=== PATIENT | female | born 2000 | race Caucasian/White ===

== ENCOUNTER 2021-02-06 17:43 | Emergency (ER) | payer MEDICAID, SELFPAY ==
[2021-02-06 17:52] VITALS: BP 119/83; PULSE 99; RESP 18; TEMP 36.7; O2SAT 98; BMI 37.3
[2021-02-06 19:28] VITALS: BP 128/82; PULSE 88; RESP 18; O2SAT 98
--- NOTE | 2021-02-06 19:40 | W.ED.FEMALGU ---
HPI - Female Genitourinary General: Chief complaint: Vaginal Bleeding Stated complaint: 5 wks , Spotting/Cramping Time Seen by Provider: 02/06/21 19:28 History of Present Illness: HPI Narrative: The patient is a 20-year-old female G3, P1 at approximately 5 weeks gestational age who comes to the ER complaining of 3 hours of lower uterine contractions type pain. No blood clots or tissue passed but she is having mild spotting. She says last year she had a miscarriage which presented like this. She wants to come in and get checked out. Offers no other medical problems. Denies flank pain, urinary symptoms, nausea, vomiting, diarrhea, abdominal pain Severity: mild Quality of pain: cramping Consistency: constant Vaginal discharge: none Vaginal bleeding: scant Exacerbating factors: none Associated symptoms: Reports no associated symptoms; Deny abdominal pain or headache(s) Possible : at home test positive Date of Last Menstrual Period: 12/31/20 Review of Systems General: Reports: 10 or more systems reviewed and unremarkable except in HPI and below Const: Denies: fatigue Eyes: Denies: change in vision, blurry vision or eye redness ENMT: Denies: throat pain, swelling of lips/tongue, ear or mastoid pain or nasal congestion Card: Denies: chest pain, palpitations, irregular heart rhythm, edema, dyspnea on exertion or orthopnea Resp: Denies: dyspnea, productive cough or non-productive cough GI: Denies: abdominal pain, diarrhea or GI cramping : Reports: other (Vaginal spotting blood); Denies: flank pain, difficulty voiding, urinary frequency or urinary urgency Musc: Denies: neck pain, back pain, extremity pain, joint pain, joint redness, limited range of motion or muscle weakness Skin/Breast: Denies: rash, pruritus, erythema, skin pain or skin tenderness Neuro: Denies: headache(s), numbness in extremities, weakness in extremities, sensory changes, difficulty walking, dizziness, confusion or Slurred speech present Psych: Denies: anxiety or depression Endo: Denies: polyuria All/Imm: Denies: urticaria, throat swelling or tongue swelling [facility] Female Reproductive History: Date of last menstrual period: 12/31/20 Physical Exam Const: COMMON NORMALS: no acute distress, average body habitus, patient oriented x3, no limitations, healthy appearing, alert and well nourished GENERAL APPEARANCE: cooperative, comfortable, well kempt and well developed ORIENTATION/CONSCIOUSNESS: Yes awake, Yes oriented to person, Yes oriented to place and Yes oriented to time HENMT: COMMON NORMALS: normocephalic, external ears normal and Normal external nose present HEAD & SCALP: normal to inspection and normocephalic NOSE: Normal external nose present EXTERNAL EAR: Yes external ears normal MOUTH: Normal oral and palatal mucosa present THROAT: posterior oropharynx normal Eye: COMMON NORMALS: Equal, round and reactive pupils present and EOMs intact bilaterally GENERAL EYE: appearance normal, both eyes and all related structures PUPIL: Yes Equal, round and reactive pupils present Neck/C-Spine: COMMON NORMALS: full ROM, no lymphadenopathy, no meningeal signs and no JVD GENERAL: Yes normal visual inspection Lymph: LYMPHATIC: no lymphadenopathy noted Chest: COMMONS NORMALS: normal inspection of the chest and normal palpation of entire chest wall Resp: COMMON NORMALS: normal respiratory effort, No retractions, No use of accessory muscles, clear to auscultation bilaterally and percussion normal EFFORT & INSPECTION: Yes able to speak in complete sentences AUSCULTATION: clear to auscultation bilaterally PERCUSSION: percussion normal Cardio: COMMON NORMALS: no JVD, regular rate, regular rhythm, S1 normal heart sound present, S2 normal heart sound present and Peripheral pulses 2+ throughout RATE: regular rate RHYTHM: regular rhythm HEART SOUNDS: S1 normal heart sound present and S2 normal heart sound present PERIPHERAL PULSES: Peripheral pulses 2+ throughout GI: COMMON NORMALS: Normal to inspection, nondistended, normoactive bowel sounds present, Soft to palpation, non-tender and no masses INSPECTION: Yes normal to inspection PALPATION: Yes Soft to palpation : COMMON NORMALS: Yes no CVA tenderness BLADDER/KIDNEY EXAM: Yes no CVA tenderness Back/Pelvis: COMMON NORMALS: no CVA tenderness, thoracic and lumbar spine normal to inspection, no thoracic nor lumbar tenderness and thoraco-lumbar ROM normal Extremity: COMMON NORMALS: normal to inspection, full ROM, capillary refill normal, no joint enlargement and no pedal edema GENERAL: Yes normal exam except as noted Neuro: COMMON NORMALS: patient oriented x3, CN's II-XII intact bilaterally, moves all extremities, no focal motor deficits, no sensory deficits noted and gait normal SENSORIUM/ORIENTATION: Yes alert, Yes oriented to person, Yes oriented to place and Yes oriented to time MENINGEAL SIGNS: Yes no meningeal signs Psych: COMMON NORMALS: mental status grossly normal, Normal thought process present, cooperative, normal affect and speech normal APPEARANCE: Yes well kempt ATTITUDE: Yes calm SPEECH: Yes normal speech THOUGHT PROCESS: Normal thought process present Skin: COMMON NORMALS: no rashes or lesions noted GENERAL SKIN EXAM: no rashes or lesions noted Course Vital Signs: Vital signs: Vital Signs Temperature 98.1 F 02/06/21 17:52 Pulse Rate 86 02/06/21 21:23 Respiratory Rate 18 02/06/21 21:23 Blood Pressure 134/76 02/06/21 21:23 Pulse Oximetry 98 02/06/21 21:23 MDM - Female MDM Narrative: Medical decision making narrative: Patient came in complaining of lower abdominal cramping like a period and vaginal spotting. She is 5 weeks . hCG is 20 and ultrasound shows no intrauterine . Likely she has had a miscarriage however recommended she follow-up with OB in 2 days and get a repeat beta-hCG and ultrasound at that time. Return to the ER with any worsening symptoms at any time. Also incidentally her lipase was found to be 163. She is not having any symptoms of acute pancreatitis her pain is much lower than her pancreas. This is likely just an incidental finding however I recommended she drink lots of fluids and follow-up with her primary care physician next week to have the lab repeated. Lab Data: Labs: Lab Results 02/06/21 02/06/21 02/06/21 Range/Units 07:20 07:20 19:15 WBC 6.4 (4.0-10.0) 10^3/ uL RBC 4.95 (4.1-5.3) 10^6/u L Hgb 14.7 (11.5-15.3) g/dL Hct 43.6 (37.0-47.0) % MCV 88.1 (81-99) fL MCH 29.7 (28.0-34.0) pg MCHC 33.7 (30.0-36.0) g/dL RDW 12.4 (12.1-15.1) % Plt Count 285 (130-400) 10^3/c mm MPV 10.1 (7.4-10.4) fL Neut % (Auto) 56.7 % Lymph % (Auto) 31.2 % [place] % (Auto) 9.6 % Eos % (Auto) 1.9 % Baso % (Auto) 0.3 % Neut # (Auto) 3.65 (1.8-7.7) 10^3/u L Lymph # (Auto) 2.0 (0.8-4.8) 10^3/u L [place] # (Auto) 0.6 (0.2-0.9) 10^3/u L Eos # (Auto) 0.1 (0.0-0.8) 10^3/u L Baso # (Auto) 0.0 (0.0-0.1) 10^3/u L Nucleated RBC % (a uto) 0 % Nucleated RBCs # 0.0 /100WBC Sodium 136 (136-145) mmol/L Potassium 3.9 (3.5-5.1) mmol/L Chloride 100 (98-107) mmol/L Carbon Dioxide 23 (22-29) mmol/L Anion Gap 16.9 (5-19) BUN 5 L (6-20) mg/dL Creatinine 0.7 (0.5-0.9) mg/dL GFR Calculation 105.6 (90-130) mL/min Glucose 74 (65-115) mg/dL Calculated Osmolal ity 278 L (285-295) mOsm/k g Calcium 9.1 (8.5-10.5) mg/dL Total Bilirubin 0.4 (0.15-1.2) mg/dL AST 20 (0-32) U/L ALT 27 (0-33) U/L Alkaline Phosphata se 54 (35-105) IU/L Total Protein 7.1 (6.6-8.7) g/dL Albumin 5.0 (3.5-5.2) g/dL Globulin 2.1 (1.3-4.6) g/dL Lipase 163 H (13-60) U/L Ser , [place] i-Qnt 20.87 mIU/mL Urine Color Yellow (Yellow) Urine Appearance Clear (CLEAR) Urine pH 5 (5-7) Ur Specific Gravit y 1.020 (1.005-1.030) Urine Protein Neg (Negative) Urine Glucose (UA) Norm (Normal) Urine Ketones Negative (Negative) Urine Blood Neg (Negative) Urine Nitrate Positive H (Negative) Urine Bilirubin Neg (Negative) Urine Urobilinogen Norm (Negative) mg/dL Ur Leukocyte Donna ase Negative (Negative) Urine RBC 0-4 H (0-2) /hpf Urine WBC 5-10 H (0-5) /hpf Ur Squamous Epith Cells 10-15 H (0-5) /hpf Amorphous Sediment Not Reportable Urine Bacteria 1+ H (NONE) /hpf Blood Type Rho(D) Type Antibody Screen 02/06/21 Range/Units 19:40 WBC (4.0-10.0) 10^3/ uL RBC (4.1-5.3) 10^6/u L Hgb (11.5-15.3) g/dL Hct (37.0-47.0) % MCV (81-99) fL MCH (28.0-34.0) pg MCHC (30.0-36.0) g/dL RDW (12.1-15.1) % Plt Count (130-400) 10^3/c mm MPV (7.4-10.4) fL Neut % (Auto) % Lymph % (Auto) % [place] % (Auto) % Eos % (Auto) % Baso % (Auto) % Neut # (Auto) (1.8-7.7) 10^3/u L Lymph # (Auto) (0.8-4.8) 10^3/u L [place] # (Auto) (0.2-0.9) 10^3/u L Eos # (Auto) (0.0-0.8) 10^3/u L Baso # (Auto) (0.0-0.1) 10^3/u L Nucleated RBC % (a uto) % Nucleated RBCs # /100WBC Sodium (136-145) mmol/L Potassium (3.5-5.1) mmol/L Chloride (98-107) mmol/L Carbon Dioxide (22-29) mmol/L Anion Gap (5-19) BUN (6-20) mg/dL Creatinine (0.5-0.9) mg/dL GFR Calculation (90-130) mL/min Glucose (65-115) mg/dL Calculated Osmolal ity (285-295) mOsm/k g Calcium (8.5-10.5) mg/dL Total Bilirubin (0.15-1.2) mg/dL AST (0-32) U/L ALT (0-33) U/L Alkaline Phosphata se (35-105) IU/L Total Protein (6.6-8.7) g/dL Albumin (3.5-5.2) g/dL Globulin (1.3-4.6) g/dL Lipase (13-60) U/L Ser , [place] i-Qnt mIU/mL Urine Color (Yellow) Urine Appearance (CLEAR) Urine pH (5-7) Ur Specific Gravit y (1.005-1.030) Urine Protein (Negative) Urine Glucose (UA) (Normal) Urine Ketones (Negative) Urine Blood (Negative) Urine Nitrate (Negative) Urine Bilirubin (Negative) Urine Urobilinogen (Negative) mg/dL Ur Leukocyte Donna ase (Negative) Urine RBC (0-2) /hpf Urine WBC (0-5) /hpf Ur Squamous Epith Cells (0-5) /hpf Amorphous Sediment Urine Bacteria (NONE) /hpf Blood Type O Positive Rho(D) Type Positive / 4+ Antibody Screen Negative Discharge Plan Discharge Patient Disposition: Home Clinical Impression: Threatened , Elevated lipase Condition: Stable Discharge Orders: Discharge ED (Routine); Ordered 02/06/21 Ordered By: Elian Bee Discharge Diet: Advance as tolerated Discharge Activity: Resume usual activity Patient Instructions: Threatened Miscarriage (ED), Pancreatitis (ED), Opioid Safety Activity Restrictions/Additional Instructions: You are 5 weeks and your quantitative hCG is 20. Ultrasound does not see a in your uterus also. There is a high likelihood you have had a miscarriage. Please follow-up with your manager legal in a couple days to have your hCG redrawn. If it is not going up it will be formally called a miscarriage. Also of note incidentally found your lipase is elevated to 163. This may be of no consequence as you are not having significant pain where your pancreas is. Please drink lots of fluids and have your lipase level rechecked by your primary care physician next week. Return to the ER if you develop worsening belly pain or start having nausea and vomiting. Coding Level of Care Code ED Rubber Thread Spooler for Chg Fwd Exam Comprehensive
[2021-02-06 19:51] LABS: Basophils % 0.3 %; Eosinophils # 0.1 10^3/uL (0.0-0.8); Eosinophils % 1.9 %; Hematocrit 43.6 % (37.0-47.0); Hemoglobin 14.7 g/dL (11.5-15.3); Lymphocytes % 31.2 %; Mean Corpuscular HGB Conc 33.7 g/dL (30.0-36.0); Mean Corpuscular Hemoglobin 29.7 pg (28.0-34.0); Mean Corpuscular Volume 88.1 fL (81-99); Mean Platelet Volume 10.1 fL (7.4-10.4); Monocytes # 0.6 10^3/uL (0.2-0.9); Monocytes % 9.6 %; Neutrophils # 3.65 10^3/uL (1.8-7.7); Neutrophils % 56.7 %; Nucleated Red Blood Cells % 0 %; Platelet Count 285 10^3/cmm (130-400); Red Blood Count 4.95 10^6/uL (4.1-5.3); Red Cell Distribution Width 12.4 % (12.1-15.1); White Blood Count 6.4 10^3/uL (4.0-10.0)
[2021-02-06 19:58] LABS: Bilirubin Urine Neg (Negative); Blood Urine Neg (Negative); Glucose Urine UA Norm (Normal); Ketones Urine Negative (Negative); Leukocyte Esterase Urine Negative (Negative); Protein Urine Neg (Negative); Urine Appearance Clear (CLEAR); Urine Color Yellow (Yellow); Urobilinogen Urine Norm (Negative); pH Urine 5 (5-7)
[2021-02-06 20:08] LABS: Nitrate Urine Positive (Negative)
[2021-02-06 20:09] LABS: Add Urine Culture? No; Add Urine Microscopic? YES; Bacteria Urine 1+ /hpf; RBC Urine 0-4 /hpf (0-2)
[2021-02-06 20:12] LABS: HCG Quantitative 20.87 mIU/mL
[2021-02-06 20:23] LABS: Alanine Aminotransferase 27 U/L (0-33); Alkaline Phosphatase 54 IU/L (35-105); Anion Gap 16.9 (5-19); Aspartate Amino Transferase 20 U/L (0-32); Blood Urea Nitrogen 5 mg/dL (6-20); Calcium 9.1 mg/dL (8.5-10.5); Carbon Dioxide 23 mmol/L (22-29); Chloride 100 mmol/L (98-107); Globulin 2.1 g/dL (1.3-4.6); Glomerular Filtration Rate 105.6 mL/min (90-130); Glucose 74 mg/dL (65-115); Lipase 163 U/L (13-60); Osmolality Calculated 278 mOsm/kg (285-295); Potassium 3.9 mmol/L (3.5-5.1); Sodium 136 mmol/L (136-145); Total Bilirubin 0.4 mg/dL (0.15-1.2); Total Protein 7.1 g/dL (6.6-8.7)
--- NOTE | 2021-02-06 21:03 | USR_ITS ---
PROCEDURE INFORMATION: Exam: US , Transvaginal and US Duplex Artery or Vein, Ovaries, Limited Exam date and time: 02/06/2021 9:03 PM Age: 20 years old Clinical indication: complicated by abdominal or pelvic pain; Left lower quadrant; First trimester; Gestational age or lmp: 5 w 5 day by lmp; ; Additional info: Threatened . Beta hCG 20 TECHNIQUE: Imaging protocol: Real-time transvaginal obstetrical ultrasound of the maternal pelvis and a first trimester with image documentation. Transvaginal imaging was used for better evaluation of the fetus, adnexa, and/or cervix. Real-time duplex ultrasound scan of the arterial or venous flow of the ovaries with B-mode, color Doppler flow and spectral waveform analysis, Limited Duplex. COMPARISON: 1. CT abdomen pelvis w con* [id number] 01/18/2019 2:42 PM 2. US gall bladder [id number] 11/21/2016 7:11 AM FINDINGS: GESTATION: Gestation: No intrauterine gestational sac. MATERNAL: Uterus: The endometrial stripe measures 16 mm in thickness. Right adnexa: Unremarkable right ovary. Normal right ovarian blood flow and waveform. Left adnexa: Unremarkable left ovary. Normal left ovarian blood flow and waveform. US/US OB transvaginal [id number] IMPRESSION: 1. No intrauterine gestational sac. Findings can be secondary to early intrauterine or failed . Ectopic cannot be excluded. 2. No ovarian torsion.
[2021-02-06 21:23] VITALS: BP 134/76; PULSE 86; RESP 18; O2SAT 98
[2021-02-06 22:42] VITALS: BP 132/70; PULSE 74; RESP 18; O2SAT 99
== END 2021-02-06 22:40 | disposition home or self-care (01) ==
PROVIDERS: Emergency Medicine; Emergency Provider Family Medicine
DX: O20.0 Threatened abortion (principal); Z3A.01 Less than 8 weeks gestation of pregnancy; O26.891 Other specified pregnancy related conditions, first trimester; R79.89 Other specified abnormal findings of blood chemistry
CPT/HCPCS: 76817; 80053; 81001; 83690; 84702; 85025; 86850; 86900; 99283

== ENCOUNTER 2023-08-05 13:21 | Outpatient (CLI) | payer MEDICAID, SELFPAY ==
[2023-08-05] MEDS: iohexol 350 mg/mL 500 mL Btl (per mL) IV (13:41)
--- NOTE | 2023-08-05 14:00 | CT_ITS ---
WS: [id number] CT chest w con* [id number] HISTORY: R91.1 - Solitary pulmonary nodule TECHNIQUE: Axial imaging performed through the thorax. Coronal and sagittal reformats are submitted. All CT scans at [facility] use at least one of these dose optimization techniques: automated exposure control; mA and/or kV adjustment per patient size (includes targeted exams where dose is mat ched to clinical indication); or iterative reconstruction. CONTRAST: Omnipaque 350; 100 mL IV. DLP: 476.54 mGy.cm COMPARISON: 05/11/2018 and 01/18/2019 Lungs and central airway: Poor inspiration. Slightly lobulated subpleural nodule measuring 9 mm in ma ximal diameter at the LEFT lung base abutting the diaphragm. No additional nodule or mass. This nodul e was not present in 2019. No pneumonia. Pleura: No effusions. Heart and pericardium: Normal size heart with no pericardial effusion. Mediastinum and grey: Enlarged RIGHT paratracheal lymph node measures 1.4 x 1.7 cm. There are smaller but mildly prominent perihilar lymph nodes. No axillary nodes. Vessels: Normal size aortic and pulmonary artery. No coronary artery calcifications. Chest wall and lower neck: Mild thyromegaly. Upper abdomen: Prior cholecystectomy. Small hiatal hernia. Osseous structures: No destructive process. IMPRESSION: 1. Lobulated subpleural nodule at the LEFT lung base abuts the diaphragm measuring 9 mm. Not present in 2019. Recommend chest CT follow-up in 3 months. 2. Enlarged RIGHT paratracheal lymph nodes. This may be a single lymph node or several lymph nodes to gether. Lymph nodes can also be reevaluated in a 3-month chest CT follow-up with IV contrast. 3. Prior cholecystectomy.
== END 2023-08-05 13:22 | disposition home or self-care (01) ==
LOC: RAD 13:21
PROVIDERS: PCP Nurse Practitioner; Visit Provider Nurse Practitioner
DX: R91.1 Solitary pulmonary nodule (principal); R06.00 Dyspnea, unspecified
CPT/HCPCS: 71260; Q9967

== ENCOUNTER 2023-11-13 13:12 | Outpatient (CLI) | payer MEDICAID, SELFPAY ==
--- NOTE | 2023-11-13 13:27 | CT_ITS ---
WS: [id number] Exam: CT neck w con* [id number] Date/Time of Exam: 11/13/2023 1:42 PM Reason For Exam: LOCALIZED ENLARGED LYMPH NODES DLP: 246.[address] scans at [facility] use at least one of these dose optimization techniques: automated e xposure control; mA and/or kV adjustment per patient size (includes targeted exams where dose is matc hed to clinical indication); or iterative reconstruction. No significant cervical lymphadenopathy is noted. There are benign-appearing fatty replaced lymph nod es along the anterior aspects of both submandibular glands. There is goitrous enlargement of the thyr oid gland. The airway is patent. There are small nodes along the anterior bilateral carotid sheaths h owever all measure less than 1 cm in greatest short axis dimension. The parotid glands and submandibu lar glands appear normal. No mass is noted in the region of the tongue base. Vascular structures in t he neck are patent. No mediastinal mass or significant adenopathy. No destructive bone changes. IMPRESSION: 1. No sign of neck mass or significant cervical lymphadenopathy. 2. Goitrous enlargement of the thyroid gland. This is generalized.
[2023-11-13] MEDS: iohexol 350 mg/mL 500 mL Btl (per mL) IV (13:29)
--- NOTE | 2023-11-13 13:30 | CT_ITS ---
WS: [id number] Exam: CT chest wo kranthi [id number] Date/Time of Exam: 11/13/2023 1:30 PM Reason For Exam: Follow Up DLP: 521.[address] scans at [facility] use at least one of these dose optimization techniques: automated e xposure control; mA and/or kV adjustment per patient size (includes targeted exams where dose is matc hed to clinical indication); or iterative reconstruction. Comparison 08/05/2023. There is a stable appearing 9 mm subpleural nodule that abuts the LEFT diaphragm. No new nodules or m asses are identified in either lung. The lungs are clear and fully expanded. No pericardial or pleura l effusion identified. A small cluster of subcentimeter RIGHT anterior paratracheal lymph nodes are n oted and are unchanged since the previous study. No pathologically enlarged lymph nodes are identifie d. Enlarged bilateral thyroid lobes. The thoracic aorta is normal in caliber. The chest wall is intac t. No destructive bone lesions are seen. CT sections of the upper abdomen demonstrate no significant abnormal finding. IMPRESSION: 1. Stable appearing 9 mm subpleural nodule abuts the LEFT diaphragm. No new pulmonary nodules or mass es identified. 2. Small cluster of subcentimeter lymph nodes along the RIGHT paratracheal region stable since prior study. No suspicious enlarged nodes in the chest.
== END 2023-11-13 13:13 | disposition home or self-care (01) ==
LOC: RAD 13:14
PROVIDERS: PCP Nurse Practitioner; Visit Provider Internal Medicine Pulmonary Disease
DX: R91.1 Solitary pulmonary nodule (principal)
CPT/HCPCS: 70491; 71250; Q9967

== ENCOUNTER 2023-11-21 11:07 | Emergency (ER) | payer MEDICAID, SELFPAY ==
--- NOTE | 2023-11-21 11:11 | W.ED.LOWEXIN ---
HPI - Extremity Injury (Lower) General: Chief Complaint: Extremity Injury, Lower Stated Complaint: LEFT ANKLE PAIN S/P FALL Time Seen by Provider: 11/21/23 11:11 Source: patient Mode of arrival: EMS Limitations: no limitations History of Present Illness: Patient is a 23-year-old female presents to ED today via EMS for evaluation of left foot injury that she sustained just prior to arrival. 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 She complains of pain and swelling to the lateral aspect of the left foot. She is not having ankle pain. No other injuries or complaints at this time. MD complaint: foot injury Onset (ago): hour(s) Injury: Left: foot Type of Injury: inversion Place: work Severity: moderate Relieving factors: immobilization Exacerbating factors: weight bearing, movement and palpation Context: other (twisted) Associated symptoms: Reports inability to bear weight Other symptoms: none Review of Systems Musc: Reports: extremity pain (L foot) and extremity swelling (L foot) Neuro: Reports: difficulty walking (secondary to L foot pain); Denies: numbness in extremities or sensory changes PFS ED PFSH: Social History Smoking and tobacco/nicotine status: current every day tobacco/nicotine user e-cigarettes E-Cigarette Details: vaporizer device E-cig/vape details: 5 mg, 1000 puffs daily, former 5 cigs/day X 1.5 year Alcohol intake: never Substance/Drug Use: never Physical Exam Const: COMMON NORMALS: no acute distress, patient oriented x3, no limitations, healthy appearing, alert and well nourished Extremity: COMMON NORMALS: capillary refill normal, no joint enlargement, no clubbing, cyanosis or edema and no pedal edema GENERAL: Yes normal exam except as noted LEFT LOWER EXTREMITY: Yes foot & digits Left foot and digits: Yes inspection (swelling and tenderness near base of 5th metatarsal), Yes palpation (TTP base of 5th metatarsal), Yes ROM (limited secondary to pain) and Yes neurovascular exam (normal) Neuro: COMMON NORMALS: patient oriented x3, moves all extremities, no focal motor deficits and no sensory deficits noted SENSORIUM/ORIENTATION: Yes alert Skin: TRAUMA: no lacerations or abrasions Course Vital Signs: Vital signs: Vital Signs Temperature 98.2 F 11/21/23 11:12 Pulse Rate 117 H 11/21/23 11:27 Respiratory Rate 18 11/21/23 11:27 Blood Pressure 127/101 11/21/23 11:27 Pulse Oximetry 97 11/21/23 11:27 Oxygen Delivery Me thod Room Air 11/21/23 11:27 MDM - Extremity Injury (Lower) Medical Decision Making Patient with a fracture to the base of her left fifth metatarsal. She will be placed in a splint and given crutches with instructions for no weightbearing until she follows up with orthopedics/podiatry. Case management referral placed for this. Lab Data Radiology Impressions Foot X-Ray 11/21/23 11:17 IMPRESSION: Acute fracture of the 5th metatarsal All radiology interpretation(s) finalized by discharge Discharge Plan Discharge Patient Disposition: Home Clinical Impression: Closed fracture of fifth metatarsal bone Qualifiers: Encounter type: initial encounter Fracture alignment: displaced Laterality: left Qualified Code(s): S92.352A - Displaced fracture of fifth metatarsal bone, left foot, initial encounter for closed fracture Condition: Stable Prescriptions: New hydrocodone-acetaminophen 5-325 mg tablet 1 tab PO Q6H PRN (Reason: pain) Qty: 14 0RF Discharge Orders: Discharge ED (Routine); Ordered 11/21/23 Ordered By: Corrie Ramsay Referrals: Vijaya Gamez FNP [Primary Care Provider] - Patient Instructions: Fractures - Metatarsal, Opioid Safety, Pain Management Activity Restrictions/Additional Instructions: As we discussed you need to be nonweightbearing until told otherwise by orthopedics/podiatry. You should hear from them next week in regards to your follow-up appointment. Stand Alone Forms: Work/School Release Coding Level of Care Code ED Dispatcher Maintenance Service for Gabe Valdivia
[2023-11-21 11:12] VITALS: BP 127/92; PULSE 94; RESP 18; TEMP 36.8; O2SAT 98; BMI 36.6
--- NOTE | 2023-11-21 11:17 | XRR_ITS ---
PROCEDURE INFORMATION: Exam: XR Left Foot Exam date and time: 11/21/2023 11:25 AM Age: 23 years old Clinical indication: Injury or trauma; Fall; Blunt trauma; Ankle; Left TECHNIQUE: Imaging protocol: Radiologic exam of the left foot. Views: 3 or more views. COMPARISON: No relevant prior studies available. FINDINGS: Bones/joints: There is an acute transverse nondisplaced fracture involving the base of the 5th metatarsal. No other bony abnormality noted. Soft tissues: Normal. XR/XR foot LT min 3V* [id number] IMPRESSION: Acute fracture of the 5th metatarsal
[2023-11-21 11:27] VITALS: BP 127/101; PULSE 117; RESP 18; O2SAT 97
[2023-11-21 12:17] VITALS: BP 130/96; PULSE 95; RESP 16; TEMP 36.8; O2SAT 99
--- NOTE | 2023-11-24 15:22 | PC.SOCIAL ---
Ortho Referral Referral to clinic at this time. Clinic to contact patient with appt date/time.
== END 2023-11-21 12:19 | disposition home or self-care (01) ==
PROVIDERS: Emergency Provider Physician Assistant; PCP Nurse Practitioner
DX: S92.352A Displaced fracture of fifth metatarsal bone, left foot, initial encounter for closed fracture (principal); F17.290 Nicotine dependence, other tobacco product, uncomplicated; W18.49XA Other slipping, tripping and stumbling without falling, initial encounter; Y99.0 Civilian activity done for income or pay
CPT/HCPCS: 73630; 99283; E0114

== ENCOUNTER → 2024-03-29 10:49 | Outpatient (BNVA) | payer MEDICAID, SELFPAY | PROVIDERS: PCP Nurse Practitioner; Visit Provider Nurse Practitioner Family | DX: Z32.00 Encounter for pregnancy test, result unknown (principal); M79.672 Pain in left foot | CPT/HCPCS: 73630; 81025 ==

== ENCOUNTER 2024-08-13 08:39 | Emergency (ER) | payer MEDICAID, SELFPAY ==
[2024-08-13 08:51] VITALS: BP 136/82; PULSE 88; RESP 13; TEMP 36.5; O2SAT 100; BMI 36.0
[2024-08-13 09:10] LABS: Basophils % 0.9 %; Eosinophils # 0.1 10^3/uL (0.0-0.8); Hematocrit 37.8 % (36-47); Lymphocytes # 1.1 10^3/uL (0.8-4.8); Lymphocytes % 25.2 %; Mean Corpuscular HGB Conc 33.9 g/dL (30-55); Mean Corpuscular Hemoglobin 29.2 pg (27-33); Mean Corpuscular Volume 86.1 fl (85-98); Mean Platelet Volume 10.7 fL (7.4-10.4); Monocytes # 0.3 10^3/uL (0.2-0.9); Monocytes % 7.7 %; Neutrophils # 2.82 10^3/uL (1.8-7.7); Neutrophils % 64.2 %; Nucleated Red Blood Cells % 0 %; Platelet Count 220 10^3/cmm (157-399); Red Blood Count 4.39 10^6/uL (3.85-5.65)
--- NOTE | 2024-08-13 09:23 | ED_ITS ---
HPI - Abdominal Pain 2 General: Chief Complaint: Abdominal Pain Stated Complaint: severe pain on lft side Time Seen by Provider: 08/13/24 08:44 History of Present Illness: 24-year-old female presents emergency ro om complaining of suprapubic abdominal pain. She denies any fever sweats or chills earlier she had a little pain radiate to the towards the left leg that has resolved she denies any hematuria. She does not believe she is no vomiting or diarrhea Associated Symptoms: Denies chills, dysuria and fever(s) Related Data Date of Last Menstrual Period: 07/14/24 Previous Rx's Medication Instructions Recorded ciprofloxacin HCl 500 mg tablet 500 mg PO BID #14 tabs 08/13/24 (Cipro) phenazopyridine 200 mg tablet 200 mg PO Q8H PRN pain 6 doses #6 08/13/24 (Pyridium) tabs Allergies Allergy/AdvReac Type Severity Reaction Status Date / Time Penicillins Allergy ALGY-Anaphy Verified 08/13/24 08:55 laxis Review of Systems 2 Const: Denies: fever(s) or chills Card: Denies: chest pain Resp: Denies: dyspnea GI: Denies: abdominal pain : Reports: flank pain (Transient); Denies: dysuria, urinary frequency or urinary urgency Musc: Denies: neck pain or back pain Skin/Breast: Denies: rash PFSH ED 2 PFSH: Social History Smoking and tobacco/nicotine status: current every day tobacco/nicotine user e- cigarettes E-Cigarette Details: vaporizer device E-cig/vape details: 5 mg, 1000 puffs daily, former 5 cigs/day X 1.5 year Alcohol intake: never Substance/Drug Use: never Female Reproductive History: Date of last menstrual period: 07/14/24 Physical Exam 2 Const: GENERAL APPEARANCE: cooperative ORIENTATION/CONSCIOUSNESS: Yes awake, Yes oriented to person, Yes oriented to place and Yes oriented to time HENMT: COMMON NORMALS: normocephalic, atraumatic and hearing grossly normal bilaterally HEAD & SCALP: normocephalic and atraumatic Resp: COMMON NORMALS: normal respiratory effort, No retractions, No use of accessory muscles and clear to auscultation bilaterally AUSCULTATION: clear to auscultation bilaterally Cardio: COMMON NORMALS: regular rate, regular rhythm and No murmurs present (Cardio) RATE: regular rate RHYTHM: regular rhythm GI: COMMON NORMALS: Soft to palpation and No hepatosplenomegaly present A USCULTATION: Yes normoactive bowel sounds PALPATION: Yes Soft to palpation, No Tenderness to palpation present (GI), No Guarding due to palpation present (GI) and Yes No hepatosplenomegaly present Extremity: COMMON NORMALS: normal to inspection, capillary refill normal, no clubbing, cyanosis or edema, no calf tenderness and no pedal edema Neuro: SENSORIUM/ORIENTATION: Yes oriented to person, Yes oriented to place and Yes oriented to time Skin: COMMON NORMALS: no rashes or lesions noted GENERAL SKIN EXAM: no rashes or lesions noted Course 2 Vital Signs: Vital signs: Vital Signs Temperature 97.7 F 08/13/24 08:51 Pulse Rate 71 08/13/24 11:15 Respiratory Rate 16 08/13/24 09:33 Blood Pressure 127/62 08/13/24 11:15 Pulse Oximetry 98 08/13/24 11:15 Oxygen Delivery Me thod Room Air 08/13/24 09:33 MDM - Abdominal Pain Medical Decision Making UA shows cystitis no leukocytosis she did not have any pain with Rajesh's punch will discharge patient home after receiving 1 g of Rocephin start Cipro 500 twice daily for 7 days return if has further problems with Medical Records I reviewed the patient's medical records. Lab Data I reviewed the patient's lab results. 08/13/24 09:03 08/13/24 09:03 Labs/Radiology: Laboratory Results WBC 4.40 10^3/uL (3.29-11.43) 08/13/24 09:03 RBC 4.39 10^6/uL (3.85-5.65) 08/13/24 09:03 Hgb 12.80 g/dL (11.27-16.99) 08/13/24 09:03 Hct 37.8 % (36-47) 08/13/24 09:03 MCV 86.1 fl (85-98) 08/13/24 09:03 MCH 29.2 pg (27-33) 08/13/24 09:03 MCHC 33.9 g/dL (30-55) 08/13/24 09:03 RDW 13.0 % (12.1-15.1) 08/13/24 09:03 Plt Count 220 10^3/cmm (157-399) 08/13/24 09:03 MPV 10.7 fL (7.4-10.4) H 08/13/24 09:03 Neut % (Auto) 64.2 % 08/13/24 09:03 Lymph % (Auto) 25.2 % 08/13/24 09:03 [place] % (Auto) 7.7 % 08/13/24 09:03 Eos % (Auto) 2.0 % 08/13/24 09:03 Baso % (Auto) 0.9 % 08/13/24 09:03 Neut # (Auto) 2.82 10^3/uL (1.8-7.7) 08/13/24 09:03 Lymph # (Auto) 1.1 10^3/uL (0.8-4.8) 08/13/24 09:03 [place] # (Auto) 0.3 10^3/uL (0.2-0.9) 08/13/24 09:03 Eos # (Auto) 0.1 10^3/uL (0.0-0.8) 08/13/24 09:03 Baso # (Auto) 0.0 10^3/uL (0.0-0.1) 08/13/24 09:03 Nucleated RBC % (auto) 0 % 08/13/24 09:03 Nucleated RBCs # 0.0 /100WBC 08/13/24 09:03 Sodium 136 mmol/L (136-145) 08/13/24 09:03 Potassium 3.7 mmol/L (3.5-5.1) 08/13/24 09:03 Chloride 102 mmol/L (98-107) 08/13/24 09:03 Carbon Dioxide 21 mmol/L (22-29) L 08/13/24 09:03 Anion Gap 16.7 (5-19) 08/13/24 09:03 BUN 8 mg/dL (6-20) 08/13/24 09:03 Creatinine 0.6 mg/dL (0.5-0.9) 08/13/24 09:03 GFR Calculation 121.8 mL/min (90-130) 08/13/24 09:03 Glucose 87 mg/dL (65-115) 08/13/24 09:03 Calculated Osmolality 280 mOsm/kg (285-295) L 08/13/24 09:03 Calcium 9.0 mg/dL (8.5-10.5) 08/13/24 09:03 Total Bilirubin 0.4 mg/dL (0.15-1.2) 08/13/24 09:03 AST 17 U/L (0-32) 08/13/24 09:03 ALT 13 U/L (0-33) 08/13/24 09:03 Alkaline Phosphatase 47 U/L (35-105) 08/13/24 09:03 Total Protein 7.0 g/dL (6.6-8.7) 08/13/24 09:03 Albumin 4.3 g/dL (3.5-5.2) 08/13/24 09:03 Globulin 2.7 g/dL (1.3-4.6) 08/13/24 09:03 HCG, Qual Negative (Negative) 08/13/24 09:03 Urine Color Yellow (Yellow) 08/13/24 09:20 Urine Appearance Cloudy (CLEAR) A 08/13/24 09:20 Urine pH 6.0 (5-7) 08/13/24 09:20 Ur Specific [place] 1.026 (1.005-1.030) 08/13/24 09:20 Urine Protein Trace (Negative) A 08/13/24 09:20 Urine Glucose (UA) Negative (Normal) 08/13/24 09:20 Urine Ketones Negative (Negative) 08/13/24 09:20 Urine Blood Negative (Negative) 08/13/24 09:20 Urine Nitrate Negative (Negative) 08/13/24 09:20 Urine Bilirubin Negative (Negative) 08/13/24 09:20 Urine Urobilinogen 1.0 mg/dL (Negative) 08/13/24 09:20 Ur Leukocyte Esterase 2+ (Negative) A 08/13/24 09:20 Urine RBC 0-2 /hpf (0-2) 08/13/24 09:20 Urine WBC 51-100 /hpf (0-5) H 08/13/24 09:20 Ur Squamous Epith Cells 21-50 /hpf (0-5) 12/28/24 09:20 Amorphous Sediment Not Reportable 08/13/24 09:20 Urine Bacteria 4+ /hpf (NONE) H 08/13/24 09:20 Hyaline Casts 2.46 /lpf 08/13/24 09:20 All radiology interpretation(s) finalized by discharge Discharge Plan Discharge Patient Disposition: Home Clinical Impression: Cystitis Condition: Stable Prescriptions: New ciprofloxacin HCl [Cipro] 500 mg tablet 500 mg PO BID Qty: 14 0RF phenazopyridine [Pyridium] 200 mg tablet 200 mg PO Q8H PRN (Reason: pain) Qty: 6 0RF Discharge Orders: Discharge ED (Routine); Ordered 08/13/24 Ordered By: Gasper Badillo Referrals: Vijaya Gamez FNP [Primary Care Provider] - Patient Instructions: Urinary Tract Infection in Women (ED), Opioid Safety, Pain Management Activity Restrictions/Additional Instructions: Thank you for choosing [facility] for your healthcare needs today. It is very important that you follow up as instructed or that you return to the Emergency Department should you have concerns or if your condition changes or worsens in any way. Coding Level of Care Code ED Finisher Hand for Gabe Valdivia
[2024-08-13 09:26] LABS: HCG, Serum Qual Negative (Negative)
[2024-08-13 09:30] LABS: Alanine Aminotransferase 13 U/L (0-33); Albumin Level 4.3 g/dL (3.5-5.2); Alkaline Phosphatase 47 U/L (35-105); Anion Gap 16.7 (5-19); Aspartate Amino Transferase 17 U/L (0-32); Blood Urea Nitrogen 8 mg/dL (6-20); Carbon Dioxide 21 mmol/L (22-29); Chloride 102 mmol/L (98-107); Globulin 2.7 g/dL (1.3-4.6); Glomerular Filtration Rate 121.8 mL/min (90-130); Glucose 87 mg/dL (65-115); Osmolality Calculated 280 mOsm/kg (285-295); Potassium 3.7 mmol/L (3.5-5.1); Sodium 136 mmol/L (136-145); Total Bilirubin 0.4 mg/dL (0.15-1.2)
[2024-08-13 09:32] LABS: Bilirubin Urine Negative (Negative); Blood Urine Negative (Negative); Glucose Urine UA Negative (Normal); Ketones Urine Negative (Negative); Leukocyte Esterase Urine 2+ (Negative); Nitrate Urine Negative (Negative); Protein Urine Trace (Negative); Specific Gravity, Urine 1.026 (1.005-1.030); Urine Appearance Cloudy (CLEAR); Urine Color Yellow (Yellow)
[2024-08-13 09:33] VITALS: BP 114/77; PULSE 83; RESP 16; O2SAT 96
[2024-08-13 09:37] LABS: Add Urine Microscopic? YES; Bacteria Urine 4+ /hpf; Hyaline Casts Urine 2.46 /lpf; RBC Urine 0-2 /hpf (0-2); Squamous Epithelial Cell Urine 21-50 /hpf (0-5); WBC Urine 51-100 /hpf (0-5)
[2024-08-13] MEDS: cefTRIAXone 1,000 mg SDV 1000 MG IVP (10:50)
[2024-08-13 11:15] VITALS: BP 127/62; PULSE 71; O2SAT 98
== END 2024-08-13 11:16 | disposition home or self-care (01) ==
PROVIDERS: Emergency Provider Family Medicine; PCP Nurse Practitioner
DX: N30.90 Cystitis, unspecified without hematuria (principal); F17.290 Nicotine dependence, other tobacco product, uncomplicated
CPT/HCPCS: 36415; 80053; 81001; 84703; 85025; 87040; 96374; 99284; J0696

== ENCOUNTER 2024-12-03 19:28 | Emergency (ER) | payer MEDICAID, SELFPAY ==
[2024-12-03 19:31] VITALS: BP 111/76; PULSE 91; RESP 14; TEMP 36.8; O2SAT 100; BMI 36.0
--- NOTE | 2024-12-03 19:41 | USR_ITS ---
PROCEDURE INFORMATION: Exam: US , Limited Exam date and time: 12/03/2024 9:14 PM Age: 24 years old Clinical indication: Lmp or gestational age (in weeks): 18w6d; Antepartum complications; Other: Cramping; ; Additional info: Threatened miscarriage- patient questions if she lost her mucus plug LABS AND CLINICAL REPORTS: Gestational age (Established): 18 w 6 d Estimated due date (Established): 04/30/2025 TECHNIQUE: Imaging protocol: Real-time ultrasound of the maternal uterus with image documentation. Exam focused on the clinical indication. COMPARISON: US OB <=14 wk fetus w transvag 02/06/2021 8:49 PM FINDINGS: Gestation: Intrauterine gestation, breech heart rate: 145 bpm. heart rate of 145 bpm. Placenta: Posterior placenta with contraction. MATERNAL: Cervix: Closed cervix measures 3.4 cm. Placenta to cervix measurement of 1.1 cm. US/US OB limited [id number] IMPRESSION: Intrauterine gestation with heart rate of 145 bpm. Closed cervix. Query low lying placenta versus contraction. Attention on follow-up at 20 weeks anatomy scan.
--- NOTE | 2024-12-03 19:45 | W.ED.ABDPA2 ---
HPI - Abdominal Pain General: Chief Complaint: Abdominal Pain Stated Complaint: 19wk cramping lost mucus plug Time Seen by Provider: 12/03/24 19:38 Source: patient Mode of arrival: ambulatory Limitations: no limitations History of Present Illness: 18-year-old female who is currently 19 weeks states that she thinks she lost her mucous plug 3 hours ago. States she had a mucousy substance along with some very minor bleeding. She had no gush of fluid has had no bleeding since then had some mild abdominal cramping. This is her third has had a history of labor. Denies any fever Associated Symptoms: Denies chills, diarrhea, dysuria, fever(s), nausea and vomiting Related Data Previous Rx's ?Medication ?Instructions ?Recorded ciprofloxacin HCl 500 mg tablet 500 mg PO BID #14 tabs 08/13/24 (Cipro) phenazopyridine 200 mg tablet 200 mg PO Q8H PRN pain 6 doses #6 08/13/24 (Pyridium) tabs Allergies Allergy/AdvReac Type Severity Reaction Status Date / Time Penicillins Allergy ALGY-Anaphy Verified 12/03/24 19:36 laxis Review of Systems Const: Denies: fever(s), chills, body aches or change in appetite ENMT: Denies: throat pain or dental pain Card: Denies: chest pain Resp: Denies: dyspnea GI: Reports: abdominal pain; Denies: nausea, vomiting or diarrhea : Denies: dysuria Musc: Denies: neck pain or back pain Skin/Breast: Denies: rash Neuro: Denies: headache(s) PFSH ED PFSH: Social History Smoking and tobacco/nicotine status: current every day tobacco/nicotine user e-cigarettes E-Cigarette Details: vaporizer device E-cig/vape details: 5 mg, 1000 puffs daily, former 5 cigs/day X 1.5 year Alcohol intake: never Substance/Drug Use: never Physical Exam Const: COMMON NORMALS: no acute distress, patient oriented x3 and healthy appearing HENMT: COMMON NORMALS: normocephalic and atraumatic HEAD & SCALP: normocephalic and atraumatic Eye: COMMON NORMALS: conjunctivae normal CONJUNCTIVA: Yes conjunctivae normal Neck/C-Spine: COMMON NORMALS: full ROM and supple Chest: COMMONS NORMALS: normal inspection of the chest Resp: COMMON NORMALS: normal respiratory effort Cardio: COMMON NORMALS: regular rate, regular rhythm and No murmurs present (Cardio) RATE: regular rate RHYTHM: regular rhythm GI: COMMON NORMALS: Normal to inspection, nondistended, normoactive bowel sounds present, Soft to palpation, non-tender and no masses PALPATION: Yes Soft to palpation : OTHER: Cervix is closed no bleeding Extremity: COMMON NORMALS: normal to inspection and full ROM Neuro: COMMON NORMALS: patient oriented x3, moves all extremities and no focal motor deficits Psych: COMMON NORMALS: mental status grossly normal, Normal thought process present and cooperative THOUGHT PROCESS: Normal thought process present Skin: COMMON NORMALS: no rashes or lesions noted and no wounds GENERAL SKIN EXAM: no rashes or lesions noted Course Vital Signs: Vital signs: Vital Signs Temperature 98.2 F 12/03/24 19:31 Pulse Rate 91 12/03/24 19:31 Respiratory Rate 14 12/03/24 19:31 Blood Pressure 111/76 12/03/24 19:31 Pulse Oximetry 100 12/03/24 19:31 Oxygen Delivery Me thod Room Air 12/03/24 19:31 MDM - Abdominal Pain Medical Decision Making Patient presents here with threatened miscarriage her pelvic exam was normal cervix was closed no blood ultrasound was normal as well she stable for discharge she has to follow-up with her OB next week return if worsening Medical Records I reviewed the patient's medical records. Lab Data Labs/Radiology: Laboratory Results Amorphous Sediment Not Reportable 12/03/24 20:20 All radiology interpretation(s) finalized by discharge Discharge Plan Discharge Patient Disposition: Home Clinical Impression: Threatened miscarriage Condition: Stable Prescriptions: No Action ciprofloxacin HCl [Cipro] 500 mg tablet 500 mg PO BID Qty: 14 0RF phenazopyridine [Pyridium] 200 mg tablet 200 mg PO Q8H PRN (Reason: pain) Qty: 6 0RF Discharge Orders: Discharge ED (Routine); Ordered 12/03/24 Ordered By: Zen Mujica Referrals: Vijaya Gamez FNP [Primary Care Provider] - Discharge Diet: Advance as tolerated Discharge Activity: Resume usual activity Patient Instructions: Threatened Miscarriage (ED) Print Language: Greek Coding Level of Care Code ED Level Vial Curvature Gauger for Gabe Valdivia
[2024-12-03 20:54] LABS: Bilirubin Urine Negative (Negative); Blood Urine Negative (Negative); Glucose Urine UA Negative (Normal); Ketones Urine Negative (Negative); Leukocyte Esterase Urine Trace (Negative); Nitrate Urine Negative (Negative); Protein Urine Negative (Negative); Specific Gravity, Urine 1.024 (1.005-1.030); Urine Appearance Clear (CLEAR); Urine Color Yellow (Yellow); pH Urine 6.5 (5-7)
[2024-12-03 20:58] LABS: Add Urine Microscopic? YES; Bacteria Urine None Seen /hpf; RBC Urine 0-2 /hpf (0-2); Squamous Epithelial Cell Urine 0-5 /hpf (0-5); Universal Test for UA Present (0); WBC Urine 0-5 /hpf (0-5)
[2024-12-03 21:24] LABS: Add Urine Culture? No; Mucus Urine TRACE /hpf
[2024-12-03 21:32] VITALS: BP 100/66; PULSE 81; RESP 16; O2SAT 98
[2024-12-03 21:48] LABS: Chlamydia Trachomatis NOT DETECTED; Neisseria Gonorrhea NOT DETECTED
== END 2024-12-03 21:40 | disposition home or self-care (01) ==
PROVIDERS: Emergency Provider Emergency Medicine; PCP Nurse Practitioner
DX: O20.0 Threatened abortion (principal); Z3A.19 19 weeks gestation of pregnancy; F17.290 Nicotine dependence, other tobacco product, uncomplicated
CPT/HCPCS: 76815; 81001; 87210; 87491; 87591; 99284

== ENCOUNTER 2024-12-20 20:31 | Outpatient (CLI) | payer MEDICAID, SELFPAY ==
[2024-12-20 20:47] VITALS: BMI 36.0
[2024-12-20 21:20] VITALS: BP 102/62; PULSE 82
[2024-12-20 21:36] VITALS: BP 103/66; PULSE 85
[2024-12-20 22:06] VITALS: BP 105/66; PULSE 77
[2024-12-20 22:21] VITALS: BP 107/53; PULSE 87
[2024-12-20 22:37] VITALS: BP 101/66; PULSE 90
[2024-12-20 22:50] VITALS: BP 101/66; PULSE 90; RESP 14; O2SAT 100
[2024-12-20 23:04] LABS: Nitrazine Paper, PH Positive
== END 2024-12-20 22:51 | disposition home or self-care (01) ==
LOC: OPOB 20:32 → OBGYN 20:39 → OPOB 20:40 → OBGYN 20:41
PROVIDERS: PCP Nurse Practitioner; Visit Provider Obstetrics & Gynecology
DX: O26.899 Other specified pregnancy related conditions, unspecified trimester (principal); Z3A.00 Weeks of gestation of pregnancy not specified; R10.9 Unspecified abdominal pain; R07.81 Pleurodynia
CPT/HCPCS: 83986; 99211

== ENCOUNTER 2025-01-28 10:07 | Outpatient (CLI) | payer MEDICAID, SELFPAY ==
[2025-01-28 10:10] VITALS: BMI 36.9
[2025-01-28 10:34] VITALS: BP 105/57; PULSE 93
[2025-01-28 10:49] VITALS: BP 95/55; PULSE 86
[2025-01-28 11:04] VITALS: BP 95/55; PULSE 93
[2025-01-28 11:10] LABS: Bilirubin Urine Negative (Negative); Blood Urine Negative (Negative); Glucose Urine UA Negative (Normal); Ketones Urine Negative (Negative); Leukocyte Esterase Urine 1+ (Negative); Nitrate Urine Negative (Negative); Protein Urine Negative (Negative); Specific Gravity, Urine 1.021 (1.005-1.030); Urine Appearance Clear (CLEAR); Urine Color Yellow (Yellow); pH Urine 6.5 (5-7)
[2025-01-28 11:15] LABS: Bacteria Urine Trace /hpf; Hyaline Casts Urine 0-4 /lpf; RBC Urine 0-2 /hpf (0-2)
[2025-01-28 11:19] VITALS: BP 98/57; PULSE 81
[2025-01-28 11:34] VITALS: BP 94/58; PULSE 79
[2025-01-28 12:00] VITALS: RESP 16; TEMP 36.7
== END 2025-01-28 12:02 | disposition home or self-care (01) ==
LOC: OPOB 10:08 → OBGYN 10:24
PROVIDERS: PCP Nurse Practitioner; Visit Provider Obstetrics & Gynecology
DX: O26.899 Other specified pregnancy related conditions, unspecified trimester (principal); Z3A.00 Weeks of gestation of pregnancy not specified; R10.9 Unspecified abdominal pain
CPT/HCPCS: 81001; 99211

== ENCOUNTER 2025-01-29 22:00 | Outpatient (CLI) | payer MEDICAID, SELFPAY ==
[2025-01-29] VITALS (8 sets, daily range): BP systolic 90–107; BP diastolic 52–59; PULSE 87–103; RESP 17; TEMP 35.8; BMI 37.5
--- NOTE | 2025-01-29 23:16 | PM.OBTRLD ---
OB L&D Triage Visit Information: Date of evaluation: 01/29/25 Comments/Additional reason(s) for visit: 24yo female at 27.0 wk IUP, CHELLY 04/30/2025 seen in LD triage with c/o contractions q 2-3 . Pt was treated earlier today for UTI with Macrobid 100 mg twice daily x 7 days. Patient later presented to [facility] and received IV hydration. Pt has history of 2 previous deliveries at 35 weeks and 32 weeks. Patient is scheduled for an MFM visit on 02/01/2025 in [place] for level 2 ultrasound for cervical length evaluation. EFM?category 1 with occasional contraction. Cervix?closed I discussed contractions and labor with patient. I discussed Procardia 10 mg every 8 hours for toco lysis with her history of deliveries. Patient verbalizes understanding and is happy with the treatment plan. She is encouraged to stay hydrated, continue her medication and proceed with her MFM visit as scheduled. She is to refrain from sexual intercourse, heavy lifting pushing or pulling. Evaluation: Baseline heart rate: 130 monitor accelerations: Present 10x10 monitor decelerations: None Cervical dilation (cm): 0 Vital signs: Vital Signs - 24 hr 01/29/25 21:55 01/29/25 21:55 01/29/25 22:08 Temperature 96.4 F L Pulse Rate Respiratory Rate 17 17 Blood Pressure Oxygen Delivery Me thod Room Air 01/29/25 22:22 01/29/25 22:22 01/29/25 22:37 Temperature Pulse Rate 93 Respiratory Rate Blood Pressure 107/57 105/56 Oxygen Delivery Me thod 01/29/25 22:37 01/29/25 22:53 01/29/25 23:08 Temperature Pulse Rate 97 Respiratory Rate Blood Pressure 105/59 Oxygen Delivery Me thod Room Air 01/29/25 23:08 Temperature Pulse Rate 103 H Respiratory Rate Blood Pressure Oxygen Delivery Me thod Final Diagnosis Final Diagnosis (1) 27 weeks gestation of : Plan: DC to home. Keep MFM apptmt as scheduled. Status: Acute Code(s): Z3A.27 - 27 weeks gestation of (2) History of delivery, currently in second trimester: Status: Acute Code(s): O09.892 - Supervision of other high risk pregnancies, second trimester (3) UTI (urinary tract infection) in in second trimester: Status: Acute Code(s): O23.42 - Unspecified infection of urinary tract in , second trimester Coding Level of Care Code Acute Code for Chg Fwd Diagnoses 27 weeks gestation of Z3A.27 History of delivery, currently in second trimester O09.892 UTI (urinary tract infection) in in second trimester O23.42
[2025-01-29] MEDS: NIFEdipine 10 mg Capsule PO (23:28)
== END 2025-01-30 00:10 | disposition home or self-care (01) ==
LOC: OPOB 22:06 → OBGYN 22:07
PROVIDERS: PCP Nurse Practitioner; Visit Provider Obstetrics & Gynecology
DX: O26.899 Other specified pregnancy related conditions, unspecified trimester (principal); Z3A.00 Weeks of gestation of pregnancy not specified; R10.9 Unspecified abdominal pain
CPT/HCPCS: 99211; J9999

== ENCOUNTER 2025-02-13 11:15 | Outpatient (CLI) | payer MEDICAID, SELFPAY ==
[2025-02-13 11:15] VITALS: BMI 37.8
[2025-02-13 11:23] VITALS: BP 112/62; PULSE 111
[2025-02-13 11:30] VITALS: PULSE 97; O2SAT 99
[2025-02-13 11:35] VITALS: PULSE 101; O2SAT 97
[2025-02-13 11:40] VITALS: PULSE 119; O2SAT 97
[2025-02-13 11:45] VITALS: BP 112/74; PULSE 94
[2025-02-13 11:49] VITALS: PULSE 122; O2SAT 97
== END 2025-02-13 12:02 | disposition home or self-care (01) ==
LOC: OPOB 11:18 → OBGYN 11:19
PROVIDERS: PCP Nurse Practitioner; Visit Provider Family Medicine
DX: O99.891 Other specified diseases and conditions complicating pregnancy (principal); Z3A.00 Weeks of gestation of pregnancy not specified
CPT/HCPCS: 59025; 99211

== ENCOUNTER 2025-03-06 01:41 | Outpatient (CLI) | payer MEDICAID, SELFPAY ==
[2025-03-06 01:49] VITALS: BP 88/52; PULSE 101
[2025-03-06 01:55] VITALS: BP 112/80
[2025-03-06 02:01] VITALS: BP 103/59; PULSE 80
[2025-03-06 02:03] VITALS: BMI 38.2
[2025-03-06 02:16] VITALS: BP 106/61; PULSE 85
== END 2025-03-06 02:41 | disposition home or self-care (01) ==
LOC: OPOB 01:42 → OBGYN 01:43
PROVIDERS: PCP Nurse Practitioner; Visit Provider Family Medicine
DX: O26.899 Other specified pregnancy related conditions, unspecified trimester (principal); Z3A.00 Weeks of gestation of pregnancy not specified; R10.9 Unspecified abdominal pain
CPT/HCPCS: 59025; 99211